=== PATIENT | male | born 1980 | race African-American/Black ===

== ENCOUNTER 2017-12-16 17:12 | Emergency (ER) | payer SELFPAY ==
[~2017-12-16] VITALS: Ht 175.3 cm; Wt 73.0 kg
[2017-12-16] MEDS ORDERED: LIDOCAINE HCL/PF 1% 10 MG/ML 5ML VIAL IJ ONE (22:00)
[2017-12-16] MEDS ORDERED: BACITRACIN ZINC OINT UDPKT TOP ONE (22:00)
[2017-12-16 23:21] VITALS: BP 125/75
== END 2017-12-16 23:22 | disposition home or self-care (01) ==
LOC: ER 21:25
DX: S51.011A Laceration without foreign body of right elbow, initial encounter (principal); X58.XXXA Exposure to other specified factors, initial encounter; Y93.89 Activity, other specified; Y92.89 Other specified places as the place of occurrence of the external cause; Y99.8 Other external cause status
CPT/HCPCS: 12001; 99283; J3490